=== PATIENT | male | born 1970 | race Caucasian/White ===

== ENCOUNTER → 2021-04-10 | Outpatient (CLI) | payer BC ==
[~2021-04-10] MED LIST: BUPR15TA OR; CALCCHW12 OR; CELE10TA OR; CELE20TA OR; GEMF600T OR; KLON0.5T OR; KLON1TAB OR; LISI20TA5 OR; MULTIVIT; PRIL20CA OR; SERO1TAB OR; wellbutrin PO
--- NOTE | 2021-04-10 15:16 | REP ---
INDICATION: CALCIFIC TENDINITIS OF LT SHOULDER. COMPARISON: None. TECHNIQUE: Coronal oblique T1 and fat suppressed T2. Sagittal oblique fat suppressed T2. Axial [id number] and T2 FLASH. FINDINGS: There is moderate to severe hypertrophic degenerative change seen involving the acromioclavicular joint. The acromion process is type 1. Just superior to and compressing the supraspinatus tendon there is a 2.3 x 0.8 by 0.9 cm sized slightly irregular signal void. Some of the signal void may be actually within some of the supraspinatus tendon fibers. There is no supraspinatus musculotendinous retraction. There is patchy and linear T2 hyper signal seen within the supraspinatus tendon. Normal appearing low signal is seen throughout the subscapularis, infraspinatus, and teres minor tendons. The biceps tendon resides within the bicipital groove. There is no glenohumeral joint effusion. There is T2 linear hyper signal in the superior labrum which may be anterior to posterior. Multifocal T2 hyper signal is seen in the superolateral humeral head. There is a small amount of fluid in the subcoracoid recess. IMPRESSION: Chronic supraspinatus calcific tendinitis/tendinosis with a large calcium deposit within the subacromial space as described above. AC joint DJD Evidence of a labral tear which could be confirmed with shoulder MRI arthrography Small cysts in the humeral head Other findings as described above. <Electronically signed by Hany Pierre > 04/10/21 [id number]
== END ==
LOC: M RAD 13:24
PROVIDERS: ATTEND Physician Assistant
DX: M75.32 Calcific tendinitis of left shoulder (principal); M85.422 Solitary bone cyst, left humerus

== ENCOUNTER → 2021-05-13 | Outpatient (CLI) | payer BC ==
[~2021-05-13] MED LIST changes: +GASTROGRAFIN SOLUTION 30ML (Q9963) As Ordered ONE; +ISOVUE-370 76% 100ML VIAL As Ordered ONE
--- NOTE | 2021-05-13 11:17 | REP ---
INDICATION: LUQ ABD PAIN COMPARISON: 04/18/2013. TECHNIQUE: CT Scan of the abdomen and pelvis was performed with intravenous administration of 100 cc of Isovue 370, and oral contrast. FINDINGS: Lung bases: Unremarkable. There is a small hiatal hernia. Liver: A subtle 9 mm nodule at the right dome of the liver is unchanged since the prior study, and therefore benign. Gallbladder: Unremarkable. Spleen: Normal. Adrenals: Normal. Pancreas: Normal. Kidneys: A subcentimeter hypodensity in the upper pole the right kidney likely represents a cyst. There is a 3 mm calculus in the lower pole of the right kidney. Small and large bowel: There is sigmoid diverticulosis without acute diverticulitis. No bowel wall thickening or inflammation is seen. There is no free air. Free fluid: None. Abdominal aorta: No aneurysm or dissection. Adenopathy: None. Appendix: Not inflamed. Osseous structures: There are degenerative changes of the spine without compression deformity. Pelvis: No mass. There is fluid in the right inguinal canal appearing unchanged compared to the prior study. IMPRESSION: Small hiatal hernia. Stable benign 9 mm liver nodule compared to the prior study. Intrarenal calculus on the right with no hydroureteronephrosis. Sigmoid diverticulosis without acute diverticulitis. No acute findings. <Electronically signed by Neville Gibson > 05/13/21 [id number]
== END ==
LOC: M RAD 08:05
PROVIDERS: ATTEND Internal Medicine Gastroenterology
DX: R10.11 Right upper quadrant pain (principal); K76.89 Other specified diseases of liver; N20.0 Calculus of kidney; K57.30 Diverticulosis of large intestine without perforation or abscess without bleeding; K44.9 Diaphragmatic hernia without obstruction or gangrene
CPT/HCPCS: 74177; Q9963; Q9967

== ENCOUNTER → 2022-11-06 | Outpatient (CLI) | payer BC, OTHER ==
[~2022-11-06] MED LIST changes: +ATOR1TAB21 PO; +CALC500T68 PO; +CELE40TA PO; +GABA-282 PO; -GASTROGRAFIN SOLUTION 30ML (Q9963) As Ordered ONE; -ISOVUE-370 76% 100ML VIAL As Ordered ONE; +LISI20TA33 PO; +PRIL20TA2 PO; +PROP10TA56 PO; +SERO1TAB2 PO; +SERO50TA PO; +TRAZ-252 PO; +VITMTA PO
== END ==
LOC: M LABSMTC 10:46
PROVIDERS: ATTEND Anesthesiology
DX: Z01.812 Encounter for preprocedural laboratory examination (principal); Z11.52 Encounter for screening for COVID-19

== ENCOUNTER 2022-11-09 06:37 | Day surgery (SDC) | payer BC, OTHER ==
[~2022-11-09] VITALS: Ht 167.6 cm; Wt 80.2 kg
[~2022-11-09 06:37] MED LIST changes: +NS 1,000 ML IV ONE
[2022-11-09] MEDS ORDERED: LIDOCAINE 2% 100MG/5ML SDV (FOR ANES.) As Ordered ONE (07:18)
[2022-11-09] MEDS ORDERED: propofoL 200 MG/20 ML VIAL As Ordered ONE ×2 (07:18→07:35)
[2022-11-09 08:22] VITALS: BP 126/82
== END 2022-11-09 08:25 | disposition home or self-care (01) ==
LOC: M OPP 06:37
PROVIDERS: ATTEND Surgery
DX: Z12.11 Encounter for screening for malignant neoplasm of colon (principal); K63.5 Polyp of colon; K57.30 Diverticulosis of large intestine without perforation or abscess without bleeding; K64.0 First degree hemorrhoids; Z79.02 Long term (current) use of antithrombotics/antiplatelets; Z79.51 Long term (current) use of inhaled steroids; Z79.891 Long term (current) use of opiate analgesic; Z79.899 Other long term (current) drug therapy; Z88.8 Allergy status to other drugs, medicaments and biological substances; F41.9 Anxiety disorder, unspecified; I10 Essential (primary) hypertension

== ENCOUNTER → 2024-02-19 | Outpatient (CLI) | payer OTHER ==
[~2024-02-19] MED LIST changes: -NS 1,000 ML IV ONE
== END ==
LOC: M RAD 15:35
PROVIDERS: ATTEND Orthopaedic Surgery
DX: M51.16 Intervertebral disc disorders with radiculopathy, lumbar region (principal); M47.26 Other spondylosis with radiculopathy, lumbar region; M47.25 Other spondylosis with radiculopathy, thoracolumbar region

== ENCOUNTER 2024-05-24 07:23 | Day surgery (SDC) | payer OTHER ==
[~2024-05-24] VITALS: Ht 167.6 cm; Wt 80.6 kg
[~2024-05-24 07:23] MED LIST changes: +CITA40TA7 PO; +LIDOCAINE 2% 100MG/5ML SDV (FOR ANES.) As Ordered ONE; +LISI20TA35 PO; +ONDANSETRON 4MG 2ML VIAL As Ordered ONE; +SUMA50TA2 PO; +propofoL 200 MG/20 ML VIAL As Ordered ONE
[2024-05-24] MEDS ORDERED: ACETAMINOPHEN 1000MG 100ML IV BAG As Ordered ONE (07:42)
[2024-05-24 07:51] LABS: HEMOGLOBIN 15.1 g/dl (13.5-17.5); MEAN CORPUSCULAR HGB CONC 33.6 g/dl (32.0-36.5); MEAN CORPUSCULAR VOLUME 86.5 fl (80.0-96.0); PLATELET COUNT, AUTOMATED 206 10^3/uL (150-450)
[2024-05-24] MEDS ORDERED: KETOROLAC 60MG 2ML VIAL As Ordered ONE (08:00)
[2024-05-24] MEDS ORDERED: LR 1,000 ML IV SCH (08:10)
[2024-05-24 08:17] LABS: ALBUMIN 4.1 G/DL (3.2-5.2); ALKALINE PHOSPHATASE 66 U/L (46-116); ALT/SGPT 46 U/L (7.0-40); AST/SGOT 29 U/L (<34); BILIRUBIN,TOTAL 0.5 MG/DL (0.3-1.2); BLOOD UREA NITROGEN 19 MG/DL (9-23); CARBON DIOXIDE LEVEL 26 MMOL/L (20-31); CHLORIDE LEVEL 108 MMOL/L (98-107); CREATININE FOR GFR 0.88 MG/DL (0.70-1.30); GLOMERULAR FILTRATION RATE > 60.0 (>56); GLUCOSE, FASTING 108 MG/DL (60-100); POTASSIUM SERUM 4.2 MMOL/L (3.5-5.1); SODIUM LEVEL 141 MMOL/L (136-145); TOTAL PROTEIN 6.8 G/DL (5.7-8.2)
[2024-05-24] MEDS ORDERED: fentaNYL 100 MCG/2 ML INJECTION As Ordered ONE (08:53)
[2024-05-24] MEDS ORDERED: MIDAZOLAM INJ 2MG/2ML VIAL As Ordered ONE (08:53)
[2024-05-24] MEDS: GENTAMICIN SULF 80MG/2ML VIAL As Ordered ONE (08:55)
[2024-05-24] MEDS: ceFAZolin SOD 2 GM in IV 1 EA IV ONE (09:12)
[2024-05-24] MEDS: LIDOCAINE PRES-FREE 2% 10ML AMP As Ordered ONE (09:18)
[2024-05-24 11:03] VITALS: BP 135/79; TEMP 97.3; O2SAT 94
== END 2024-05-24 11:15 | disposition home or self-care (01) ==
LOC: M SDC 07:23
PROVIDERS: ATTEND Podiatrist
DX: M20.11 Hallux valgus (acquired), right foot (principal); I10 Essential (primary) hypertension; E78.5 Hyperlipidemia, unspecified; K21.9 Gastro-esophageal reflux disease without esophagitis; F41.9 Anxiety disorder, unspecified; F32.A Depression, unspecified; F43.10 Post-traumatic stress disorder, unspecified; Z87.891 Personal history of nicotine dependence; Z79.899 Other long term (current) drug therapy
CPT/HCPCS: 28296; 36415; 73630; 76000; 80053; 85027; 88300; C1713; J0131; J0665; J0690; J1100; J1580; J1885; J2250; J2405; J3010

== ENCOUNTER → 2025-03-04 | Outpatient (CLI) | payer OTHER ==
[~2025-03-04] MED LIST changes: +GABA-1172 PO; -GABA-282 PO; -LIDOCAINE 2% 100MG/5ML SDV (FOR ANES.) As Ordered ONE; -ONDANSETRON 4MG 2ML VIAL As Ordered ONE; -propofoL 200 MG/20 ML VIAL As Ordered ONE
[2025-03-04 17:09] LABS: ALBUMIN 4.3 G/DL (3.2-5.2); BILIRUBIN,TOTAL 0.5 MG/DL (0.3-1.2); CALCIUM LEVEL 9.4 MG/DL (8.5-10.1); CHOLESTEROL RISK RATIO 4.33 (<5); CREATININE FOR GFR 1.08 MG/DL (0.70-1.30); GLOMERULAR FILTRATION RATE 82.6 (>56); HDL CHOLESTEROL 31.8 MG/DL (>40); NON-HDL-C 106.2 MG/DL; POTASSIUM SERUM 3.8 MMOL/L (3.5-5.1)
== END ==
LOC: M WUC 15:06
PROVIDERS: ATTEND Internal Medicine
DX: E78.5 Hyperlipidemia, unspecified (principal)